=== PATIENT | male | born 1955 | race Caucasian/White ===

== ENCOUNTER 2021-06-17 11:20 | Outpatient (CLI) | payer OTHER, SELFPAY ==
[2021-06-17] MEDS: Inhaler, Assist Device 1 EACH MC (14:15)
[2021-06-17] MEDS: Albuterol HFA 18 GM 200 PUFF INH IH (14:15)
== END 2021-06-17 11:21 | disposition home or self-care (01) ==
LOC: RT 07-04 11:20
PROVIDERS: PCP Family Medicine; Visit Provider Pediatrics Pediatric Rheumatology
DX: R06.02 Shortness of breath (principal); Z02.71 Encounter for disability determination
CPT/HCPCS: 94060; 94618